=== PATIENT | female | born 1965 | race Caucasian/White ===

== ENCOUNTER 2020-03-27 18:09 | Emergency (ER) | payer OTHER, SELFPAY ==
--- NOTE | 2020-03-27 18:11 | ED.GENADULT ---
HPI - General Adult General Chief complaint: Back Pain/Injury Stated complaint: lower back pain Time Seen by Provider: 03/27/20 18:31 Source: patient Mode of arrival: ambulatory Limitations: no limitations History of Present Illness HPI narrative: 54-year-old female patient presents to the [facility] with complaints of low back pain. Patient states that she was out doing some yard work this morning for about 2 and half hours. Patient states that she came and started having some low back pain. Patient states that she feels like it spasming to the lower back. Patient states she does have chronic issues with back pain and typically tries some ointments. Patient states that she did take an Excedrin and some Tylenol earlier today due to a headache but has not taken any additional medication since having the back pain. Patient denies any numbness or tingling down the legs. Denies any loss of bowel or bladder control. Related Data Home Medications Medication Instructions Recorded Confirmed cholecalciferol (vitamin D3) 50 50 mcg PO DAILY 12/04/19 mcg (2,000 unit) capsule duloxetine 60 mg capsule,delayed cap PO 12/04/19 release esomeprazole magnesium 20 mg 20 mg PO DAILY 12/04/19 capsule,delayed release ferrous sulfate 325 mg (65 mg 325 mg PO DAILY 12/04/19 iron) tablet hydroxychloroquine 200 mg tablet 200 mg PO BID tablet 12/04/19 lorazepam 0.5 mg tablet 0.5 mg PO PRN tablet 12/04/19 resveratrol 50 mg capsule mg PO 12/04/19 rizatriptan 10 mg tablet 10 mg PO PRN tablet 12/04/19 turmeric 400 mg capsule mg PO 12/04/19 valacyclovir 1 gram tablet 1,000 mg PO PRN tablet 12/04/19 Allergies Allergy/AdvReac Type Severity Reaction Status Date / Time codeine Allergy Unknown Vomiting Verified 03/27/20 18:30 Review of Systems Review of Systems: Narrative: CONSTITUTIONAL: Denies fever, chills, or sweats. EYES: Denies visual changes, redness, or discharge. ENT: Denies rhinorrhea, congestion, sore throat, or otalgia. CARDIOVASCULAR: Denies chest pain, palpitations, or edema. RESPIRATORY: Denies cough or dyspnea. GASTROINTESTINAL: Denies abdominal pain, nausea, vomiting, or diarrhea. GENITOURINARY: Denies dysuria or hematuria. SKIN: Denies rash or itching. MUSCULOSKELETAL: Positive low back pain, denies joint pain, or myalgia. NEUROLOGIC: Denies headache, numbness, or weakness. PSYCHIATRIC: Denies anxiety or depression. PMFSH Social History Social History Smoking status: Never smoker Alcohol intake: current Comments At the time of my signature I agree with nursing past medical history, surgical, social, and family history. There is no relevant family history pertinent to the presenting complaint. Exam Narrative: Exam Narrative: GENERAL: Well-appearing, well-nourished, and in no acute distress. HEAD: Normocephalic, atraumatic. EYES: PERRLA and EOMI. ENT: Nares clear, no rhinorrhea or epistaxis. Mucous membranes moist. NECK: Supple. No lymphadenopathy CHEST: Clear to auscultation. No respiratory distress. HEART: Regular rate and rhythm. No murmur heard. Normal peripheral pulses. ABDOMEN: Soft, nontender, nondistended, normal active bowel sounds. EXTREMITIES: Normal range of motion. No edema. BACK: Patient is able to ambulated without assistance. Pt is seated on the chair in no obvouis distress. No surface trauma noted. muscle tenderness and obvious spasm noted to Palpation on right lower back. No step-offs or deformity noted to the cervical, thoracic or lumbar spine to firm Palpation at the midline. No CVA tenderness to percussion. No saddle anesthesia. ROM: able to stand erect. Normal flexion, extension, Lateral bending and rotation without limitation or complaint of pain. SKIN: Warm, dry, no rash. NEURO: No focal deficits. Alert and oriented x3. Course Vital Signs Vital signs: Vital Signs Temperature 36.7 C 03/27/20 18:17 Pulse Rate 77
[2020-03-27 18:17] VITALS: BP 111/70; PULSE 77; RESP 14; TEMP 36.7; O2SAT 99
== END 2020-03-27 18:50 | disposition home or self-care (01) ==
PROVIDERS: Emergency Provider Nurse Practitioner Family; PCP Family Medicine
DX: M62.830 Muscle spasm of back (principal); K21.9 Gastro-esophageal reflux disease without esophagitis; M06.9 Rheumatoid arthritis, unspecified; D64.9 Anemia, unspecified
CPT/HCPCS: 99213; G0463